=== PATIENT | female | born 1980 | race Caucasian/White ===

== ENCOUNTER 2023-07-04 09:42 | Emergency (ER) | payer OTHER, SELFPAY ==
[2023-07-04 09:57] VITALS: BP 109/79; PULSE 95; RESP 14; TEMP 36.7; O2SAT 100
--- NOTE | 2023-07-04 10:14 | ED.URI ---
HPI - URI/Sore Throat General Chief Complaint: Upper Respiratory Infection Stated Complaint: Sore Throat/Chest Congestion/Ear Pain Time Seen by Provider: 07/04/23 10:10 Source: patient, RN notes reviewed and old records reviewed Mode of arrival: ambulatory Limitations: no limitations History of Present Illness HPI Narrative: 43 year old female who presents to [facility] care with complaints of symptoms since yesterday morning of sore throat with pain radiating to ears, possible low grade fevers, cough with some mild pain to her upper back. Patient reports that she took NyQuil last night for her symptoms.Patient reports that she has some discomfort to her upper back and she feels achy. Patient reports no one at home is ill. MD elicited complaint: cough, sore throat and other (chest congestion and ear pain) Pertinent past history: other (tobacco use daily) Onset (ago): day(s) (since yesterday morning) Consistency: progressively worsening Severity: moderate Pain scale (0-10): 5 Description of mucous: clear Able to tolerate fluids by mouth: Yes Treatments prior to arrival: other (NyQuil) Related Data Allergies Allergy/AdvReac Type Severity Reaction Status Date / Time No Known Allergies Allergy Unverified 08/06/13 16:13 Review of Systems Review of Systems: CONSTITUTIONAL: Reports malaise, chills, sweats, unknown if fever. EYES: Denies visual changes, redness, or discharge. ENT: Reports rhinorrhea, congestion, sinus pain, otalgia and sore throat. CARDIOVASCULAR: Denies chest pain, palpitations, or edema. RESPIRATORY: Reports cough.? Denies dyspnea. GASTROINTESTINAL: Denies abdominal pain, nausea, vomiting, diarrhea SKIN: Denies rash or itching. MUSCULOSKELETAL: Reports myalgia. NEUROLOGIC: Denies headache. All systems reviewed & are unremarkable except as noted in HPI and below PMFSH Social History Social History (Updated 07/05/23 @ 11:26 by Gabbie Henderson NP) Smoking packs per day: 1 Smoking cigarettes per day: 20.0 Years smoked: 25 Smoking pack-years: 25.00 Smoking status: Current every day smoker Tobacco type: cigarettes Alcohol intake: current Alcohol use details: social Substance use type: marijuana Gender identity (if verbalized by the patient): Female Comments At time of signature, agree with nursing past medical, surgical, social and family history. There is no relevant family history pertinent to the presenting complaint Exam Narrative: GENERAL: Well-appearing, well-nourished, and in no acute distress. HEAD: Normocephalic EYES: PERRLA, conjunctivae clear ENT: Nares clear, turbinates edematous and erythematous, clear discharge. Mucous membranes moist. TM pearly luis with dull light reflex bilaterally; no tragal tenderness. Oropharynx erythematous without lesions. Tonsils red enlarged and without exudate, no drooling, no hoarseness, no trismus, uvula midline.some post nasal drainage NECK: Supple. lymphadenopathy CHEST: Clear to auscultation, breath sounds equal. No wheezing, rhonchi, rales, or stridor. No respiratory distress, speaks in full sentences.cough noted SAO2 100% on room air HEART: Regular rate and rhythm. No murmur heard. SKIN: Warm, dry, no rash. NEURO: Alert and oriented x3. PSYCH: Normal mood and affect Course Course Emergency Course: Patient is aware of diagnosis, understands and agrees to treatment plan.? Anticipatory guidance given.? Patient agrees to follow-up as directed and is aware of reasons to seek care at the emergency department. Portions of this record may have been created with voice recognition software Level of Care: Express Care Visit Vital Signs Vital signs: Vital Signs Temperature 36.7 C 07/04/23 09:57 Pulse Rate 95 07/04/23 09:57 Respiratory Rate 14 07/04/23 09:57 Blood Pressure 109/79 07/04/23 09:57 Pulse Oximetry 100 07/04/23 09:57 Oxygen Delivery Room Air 07/04/23 09:57 Temperature
== END 2023-07-04 11:28 | disposition home or self-care (01) ==
PROVIDERS: Emergency Provider Registered Nurse; PCP Family Medicine
DX: J03.90 Acute tonsillitis, unspecified (principal); Z20.822 Contact with and (suspected) exposure to COVID-19; F17.210 Nicotine dependence, cigarettes, uncomplicated; F12.90 Cannabis use, unspecified, uncomplicated
CPT/HCPCS: 87081; 87426; 87804; 87880; 99203; G0463

== ENCOUNTER 2024-12-25 08:54 | Outpatient (CLI) | payer OTHER, SELFPAY ==
--- NOTE | ~2024-12-25 | CT_ITS ---
EXAMINATION: CT soft tissue neck w con DATE: 12/25/2024 09:15 INDICATION: Neck pain. TECHNIQUE: Computed tomography (CT) of the neck was performed with 75 mL Omnipaque-350 intravenous contrast. Automated exposure control and iterative reconstruction technique were employed. The dose-length product was 240.41 mGy-cm. COMPARISON: None FINDINGS: Emphysema is noted. There is a 10 mm nodule in right thyroid lobe, likely not clinically significant. There is mild plaque in the proximal internal carotid arteries with 0% stenosis relative to normal distal artery lumen diameters. There are no pathologically enlarged lymph nodes. The pharynx and larynx are normal. There is moderate cervical spondylosis. The mastoid air cells are normal. The paranasal sinuses are clear. IMPRESSION: 1. No specific etiology for the patient's symptoms. Reviewed, dictated and finalized at location E.
--- OUTSIDE RECORDS SUMMARY | 2024-12-25 09:50 | XMS_ITS | Clinical Summary ---
Author Organization [facility] Address [address] [place] [address] Care Team Providers Care Tree Sapper Name Role Phone Unavailable Primary Care Provider Unavailabl e Source Comments [facility],non-owned Affiliates and Associated Physician Practices is amultiple site organization consisting of ambulatory clinics and hospital sitesin [place], [place], [place] and [place]. This disclosure is being madepursuant to the Care Everywhere program and may not contain all information available regarding this patient. Last updated 17.[facility] Allergies No known active allergies Medications * Be aware that medications may not be up to date on this document. Alwaysverify current medications with the patient. methylPREDNISolo ne (MEDROL DOSEPAK) 4 MG tabletIndication s:Acute bronchitis, unspecified organism Take by mouth as directed 1 Each 9 Active benzonatate (TESSALON) 200 MG capsuleIndicatio ns:Acute bronchitis, unspecified organism Take 1 capsule by mouth 3 times daily as needed for Cough 15 capsule 9 Active albuterol HFA (PROVENTIL;SCOOTER DALIA;PROAIR) 108 (90 BASE) MCG/ACT inhalerIndicatio ns:Acute bronchitis, unspecified organism Inhale 2 puffs by mouth every 4 hours as needed for Wheezing 1 Inhaler 9 Active Social History Tobacco Use Types Packs/Day Years Used Date Smoking Tobacco: Every Day Cigarettes Smokeless Tobacco: Never Tobacco Cessation:Ready to Q uit: No; Counseling Given: Yes Comments No Sex and Gender Information Value Date Recorded Sex Assigned at Not on file 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 Gender Identity Not on file Sexual Orientation Not on file Last Filed Vital Signs Vital Sign Reading Time Taken Comments Blood Pressure 102/78 03/22/2018 12:24 PM OCCUPATIONAL WORK EXPERIENCE TEACHER Pulse 78 03/22/2018 12:24 PM OCCUPATIONAL WORK EXPERIENCE TEACHER Temperature 36.7 C (98.1 F) 03/22/2018 12:24 PM OCCUPATIONAL WORK EXPERIENCE TEACHER Respiratory Rate - - Oxygen Saturation 98% 03/22/2018 12:24 PM OCCUPATIONAL WORK EXPERIENCE TEACHER Inhaled Oxygen Concentration - - Weight 56.7 kg (125 lb) 03/22/2018 12:24 PM OCCUPATIONAL WORK EXPERIENCE TEACHER Height 165.1 cm (5' 5) 03/22/2018 12:24 PM OCCUPATIONAL WORK EXPERIENCE TEACHER Body Mass Index 20.8 03/22/2018 12:24 PM OCCUPATIONAL WORK EXPERIENCE TEACHER Plan of Treatment Health Maintenance Due Date Last Done Comments COLOGUARD (AGES 45-75) - COL ON CA SCREENING 1979 COLON MONITORING 1979 COLONOSCOPY - COLON CA SCREENING 1979 CT COLONOGRAPHY - COLON CA SCREENING 1979 Colorectal Cancer Screening 1979 FIT - COLON CA SCREENING 1979 FLEX SIG - COLON CA SCREENING 1979 LIPID TESTING 1979 MAMMOGRAM 1979 HIV SCREENING 1994 HEPATITIS C SCREENING 04/20/1997 DTAP/TDAP/TD VACCINES (1 - Tdap) 1998 HEPATITIS B VACCINE (1 of 3 - 19+ 3-dose series) 1998 HPV VACCINE (1 - 3-dose SCDM series) 2006 DEPRESSION SCREENING 03/13/2024 COVID-19 VACCINE ( - 2023-2 5 season) 2024 INFLUENZA VACCINE (#1) 2024 ZOSTER VACCINE (1 of 2) 2029 HIB VACCINE Aged Out No longer eligi ble based on patient's age to complete this topic MENINGOCOCCAL (Group B) VACC INE SHARED DECISION-MAKING Aged Out No longer eligibl e based on patient's age to complete this topic MENINGOCOCCAL GROUPS A/C/Y/W VACCINE Aged Out No longer eligible b ased on patient's age to complete this topic PNEUMOCOCCAL VACCINE Aged Out No long er eligible based on patient's age to complete this topic Insurance [employer]
--- OUTSIDE RECORDS SUMMARY | 2024-12-25 09:50 | XMS_ITS | Clinical Summary ---
Author Organization [facility] Address [address] [place] [address] Phone Care Team Providers Care Soaker Hides Name Role Phone Harley Valdovinos MD Primary Care Provider [phone] Allergies No known active allergies Medications methylPREDNISol one (MEDROL DOSPACK) 4 MG Tablet Therapy Pack See product package insert for dosing schedule 21 Tablet 2 Active Additional Information Patient not taking.Reported on 11/14/2022 methylPREDNISol one (Medrol) 4 MG Tablet Therapy PackIndications :Dyspnea on exertion,Viral URI with cough Use as per instructions on package. 21 Tablet 3 Active benzonatate (TESSALON) 100 MG CapsuleIndicati ons:Viral URI with cough Take 1 Capsule by mouth 3 times daily as needed for Cough. 30 Capsule 3 Active Active Problems No known active problems Immunizations Immunization Administration Dates Next Due Td, Unspecified Formulation 06/03/2009 Social History Tobacco Use Types Packs/Day Years Used Date Smoking Tobacco: Every Day Cigarettes Smokeless Tobacco: Never Tobacco Cessation:Ready to Q uit: Not Asked; Counseling Given: Not Answered Alcohol Use Standard Drinks/Week Comments Not Currently 0 (1 standard drink = 0.6 oz pur e alcohol) Sexually Active Control Partners Comments Not Currently Comments No Sex and Gender Information Value Date Recorded Sex Assigned at Not on file Legal Sex Female 7:43 PM CDT Gender Identity Not on file Sexual Orientation Not on file Last Filed Vital Signs Vital Sign Reading Time Taken Comments Blood Pressure 122/76 11/14/2022 10:16 AM CDT Pulse 81 11/14/2022 10:16 AM CDT Temperature 36.5 C (97.7 F) 11/14/2022 10:16 AM CDT Respiratory Rate 15 11/14/2022 10:16 AM CDT Oxygen Saturation 99% 11/14/2022 10:16 AM CDT Inhaled Oxygen Concentration - - Weight 49.9 kg (110 lb) 10/06/2021 1:05 PM CDT Height 167.6 cm (5' 6) 10/06/2021 1:05 PM CDT Body Mass Index 17.75 10/06/2021 1:05 PM CDT Plan of Treatment Health Maintenance Due Date Last Done Comments Hepatitis C Virus (HCV) Screening 1979 Mammogram 1979 TdaP Immunization 1979 Hepatitis B Immunization (1 of 3 - 19+ 3-dose series) 1998 Pap Smear 2000 Human Papillomavirus (HPV) Immunization (1 - 3-dose SCDM series) 2006 Cervical Cancer Screening (CCS) 2009 HPV/Cotest 2009 Discussion re Starting/Frequ ency of Mammograms 2019 Cologuard 2024 Colonoscopy 2024 Colorectal Cancer Screening 2024 Immunochemical Fecal Occult Blood 2024 Influenza Immunization (#1) 2024 SARS-COV-2 Immunization ( season) 2024 Respiratory Syncytial Virus (RSV) Immunization (Adult) (1 - 1-dose 75+ series) 2054 DTaP/Tdap/Td Immunization Discontinued 06/03/2009 Meningococcal Immunization (ACWY) Aged Out No longer eligible based on patient's age to complete this topic Pneumococcal Immunization Combined Aged Out No longer eligible based on patient's age to complete this topic Rotavirus Immunization Aged Out No lo nger eligible based on patient's age to complete this topic Procedures Procedure Name Priority Date/Time Associated Diagnosis Comments FAMILY MEDICINE CONSULT 12/06/2024 12:00 AM CDT from Last 3 Months Results * FAMILY MEDICINE CONSULT (12/06/2024 12:00 AM CDT) 12/06/2024 us Provider Scan GENERIC SCAN ORDERS CONSULT Corine chu Result SCAN from Last 3 Months Insurance [facility] Care Teams Soaker Hides Relationship Specialty Start Date End Date Harley Valdovinos MD [address] [address] PCP - General Family Medicine 11/03/17
--- OUTSIDE RECORDS SUMMARY | 2024-12-25 09:51 | XMS_ITS | Clinical Summary ---
Author Organization [facility] Address [address] [place] [address] Care Team Providers Care Powerhouse Mechanic Helper Name Role Phone Harley Valdovinos MD Primary Care Provider [phone] Allergies No known active allergies Medications guaiFENesin-codein e (GUAITUSS AC) liquid 100-10 mg/5 mL Take 5 mL by mouth every 4 (four) hours as needed for cough or congestion. 120 mL 05/02/19 18 Active Additional Information Patient not taking.Reported on 01/05/2022 ibuprofen (ADVIL,MOTRIN) 600 mg tabletIndications: Fever,Pain Take 1 tablet (600 mg total) by mouth 3 (three) times a day. Take with food. 30 tablet 05/02/19 18 Active Additional Information Patient not taking.Reported on 01/05/2022 ondansetron ODT (ZOFRAN-ODT) 4 mg disintegrating tablet Dissolve 1 tablet oral every 4 hours as needed for nausea or vomiting. 15 tablet 05/02/19 18 Active Additional Information Patient not taking.Reported on 01/05/2022 Active Problems Problem Noted Date Diagnosed Date Sensorineural hearing loss (SNHL) of both ears 1 Assessment & Plan (01/05/2022 2:11 PM CDT): Hearing test Have Dental exam 64 ounces of caffeine free and soda free fluid daily Parotitis 01/05/2022 Assessment & Plan (01/05/2022 10:49 AM CDT): Hearing test Have Dental exam 64 ounces of caffeine free and soda free fluid daily If symptoms return or do not completely go away with antibiotics, will recommend CT neck per stone protocol Sialoadenitis 01/05/2022 Assessment & Plan (01/05/2022 10:49 AM CDT): Hearing test Have Dental exam 64 ounces of caffeine free and soda free fluid daily Otalgia of both ears 01/05/2022 Assessment & Plan (01/05/2022 10:50 AM CDT): Hearing test Have Dental exam 64 ounces of caffeine free and soda free fluid daily TMJ dysfunction discussed and Handout provided Influenza A 05/02/2017 Nausea 05/02/2017 Family History Medical History Relation Name Comments Breast cancer Maternal Grandmother Relation Name Status Comments Maternal Grandmother Social History Tobacco Use Types Packs/Day Years Used Date Smoking Tobacco: Every Day Smokeless Tobacco: Never Tobacco Cessation:Ready to Q uit: Not Asked; Counseling Given: Not Answered Alcohol Use Standard Drinks/Week Comments No 0 (1 standard drink = 0.6 oz pur e alcohol) Comments No Sex and Gender Information Value Date Recorded Sex Assigned at Not on file 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 Gender Identity Not on file Sexual Orientation Not on file Obstetrics History Para Term AB IAB SAB Ectopic Multiple Livin g Live Births 3 2 2 Date Outcome GA Total Labor Labor/2nd/3rd Weight Sex Type Anes PTL Shelley A1 A5 Name Clin Term Term Last Filed Vital Signs Vital Sign Reading Time Taken Comments Blood Pressure 99/60 01/05/2022 10:17 AM CDT Pulse 71 01/05/2022 10:17 AM CDT Temperature 36.6 C (97.8 F) 01/05/2022 10:17 AM CDT Respiratory Rate 16 01/05/2022 10:17 AM CDT Oxygen Saturation 98% 01/05/2022 10:17 AM CDT Inhaled Oxygen Concentration - - Weight 53.5 kg (118 lb) 01/05/2022 10:17 AM CDT Height 167.6 cm (5' 6) 01/05/2022 10:17 AM CDT Body Mass Index 19.05 01/05/2022 10:17 AM CDT Plan of Treatment Health Maintenance Due Date Last Done Comments Cervical Cancer Screening 1979 Colon Cancer Screening-Colonoscopy 1979 Depression Screening 1979 Hepatitis C Screening 1979 Varicella Vaccines (1 of 2 - 13+ 2-dose series) 1992 Hepatitis B Screening 1997 Regular Well Visit/Exam 18-64 1997 Pneumococcal vaccine <65 (1 of 2 - PCV) 1998 HPV Vaccines (1 - 3-dose SCDM series) 2006 DTaP/Tdap/Td Vaccine (1 - Tdap) 06/04/2009 0 Breast Cancer Screening-Mammogram 08/30/2024 024, 05/01/2021 Influenza Vaccine (#1) 2024 Procedures Procedure Name Priority Date/Time Associated Diagnosis Comments SCREENING MAMMOGRAM BILATERAL W ALY Schedule Routine, Read Routine (OP Routine) 08/31/2023 4:20 PM CDT Encounter for screening mammogram for malignant neoplasm of breast from Last 3 Months or Most Recently Relevant to Health Maintenance Results * Screening Mammogram Bilateral W Aly (08/31/2023 4:20 PM CDT) Anatomical Region Laterality Modality Breast Bilateral Mammography 09/01/2023 8:27 AM CDT Impressions 09/01/2023 8:27 AM CDT There is no mammographic evidence of malignancy. A 1 year screening mammogram is recommended. BI-RADS: 2 - Benign. The patient has been or will be contacted. The patient will be entered into a reminder system with a target due date of 1 year for her next mammogram. Electronically signed by: Nani Davies M.D. Narrative 09/01/2023 8:27 AM CDT EXAMINATION: SCREENING MAMMOGRAM BILATERAL W ALY ORDERING HEALTHCARE PROVIDER: HARLEY VALDOVINOS HISTORY: Routine screening mammography. COMPARISON: 05/01/2021 TECHNIQUE: CC and MLO views of the bilateral breasts were obtained with digital technique using breast tomosynthesis with C view. Computer aided detection was utilized. FINDINGS: DENSITY: The tissue of the breasts is extremely dense, which lowers the sensitivity of mammography. BREASTS: There are no suspicious masses, suspicious calcifications, or other suspicious findings in either breast. There has been no suspicious interval change. Benign vascular calcifications are noted in the bilateral breasts. Harley Valdovinos MD IMG MAMMO PROCEDURES Final Re sult from Last 3 Months or Most Recently Relevant to Health Maintenance Insurance [facility] HMO/PPO Address: [address] [address] Care Teams Powerhouse Mechanic Helper Relationship Specialty Start Date End Date Harley Valdovinos MD [address] [place] [address] [address] [facility] [address] [place] [address] PCP - General Family Medicine 10/24/23
== END 2024-12-25 08:55 | disposition home or self-care (01) ==
PROVIDERS: PCP Family Medicine; Visit Provider Otolaryngology
DX: M54.2 Cervicalgia (principal)
CPT/HCPCS: 70491; Q9967